=== PATIENT | female | born 1950 | race African-American/Black ===

== ENCOUNTER 2016-12-30 15:37 | Emergency (ER) | payer MEDICARE, OTHER ==
[~2016-12-30] VITALS: Ht 160 cm; Wt 100.0 kg
[~2016-12-30 15:37] MED LIST: ALBUAER3 INH; CETI10 PO; LISI40TA PO; NAPR-576 PO; NITR0.4S SL; OMEP20CA5 PO
[2016-12-30 15:39] VITALS: BP 135/76; PULSE 84; RESP 20; TEMP 98; O2SAT 98
--- NOTE | 2016-12-30 15:47 | PD ---
Physical Exam Date Seen by Provider: Dec 30, 2016 Time Seen by Provider: 15:46 Narrative 66 yo female here for chest pain. Going on for a week. Feels like its a pull. No falls or injuries. Saw PCP who sent here here. Pain is 6/10. No SOB. Vitals are stable in triage. Awaiting Bed placement. Data Data Last Documented VS Vital Signs Date Time Temp Pulse Resp B/P Pulse Ox O2 Delivery O2 Flow Rate FiO2 12/30/16 15:39 98.0 84 20 135/76 98 Room Air [facility] Medical Record Reviewed: Yes Supervised Visit with SHARLENE: No John Valente Dec 30, 2016 15:47
[2016-12-30] MEDS ORDERED: RESP: ALBUTEROL 2.5 MG/IPRATROPIUM 0.5 MG NEB (SCH) INH ONE (17:00)
[2016-12-30] MEDS ORDERED: methylPREDNISolone SOD SUCC 125 MG/2 ML VIAL IVP ONE (17:00)
[2016-12-30] MEDS ORDERED: SODIUM CHLORIDE 0.9% FLUSH 10 ML FLUSH IVF PRN (17:00)
[2016-12-30] MEDS ORDERED: OMEP40CA2 PO (17:01)
[2016-12-30 17:03] VITALS: RESP 16; O2SAT 98
--- NOTE | 2016-12-30 17:17 | PD ---
HPI Chief Complaint: Chest Pain Time Seen by Provider: 17:01 Travel History International Travel<30 days: No Contact w/Intl Traveler<30days: No Traveled to known affect area: No History of Present Illness HPI Patient comes in at the advice of her primary care doctor for further treatment and evaluation. Per patient's son says the patient is here to get an x-ray. Patient states she's been having substernal chest pulling ongoing for a week intermittently. Patient reports associated shortness of breath. Patient's use inhaler that is helped with her symptoms last used yesterday. Patient denies anything making it worse. Denies any fevers, dyspnea on exertion, edema, nausea , vomiting, back pain, headache, neck pain, abdominal pain, or loss change in bowel or bladder. Patient reports associated cough that is occasionally productive. PFSH Past Medical History Arthritis: Yes (BOTH KNEES) Asthma: No Autoimmune Disease: No Blood Disorders: No Bipolar Disorder: Yes Anxiety: Yes Depression: No Heart Rhythm Problems: No Cancer: No Cardiac Catheterization: No Cardiovascular Problems: Yes (PERICARDIAL WINDOW 2006) High Cholesterol: No Chemotherapy: No Chest Pain: Yes Congestive Heart Failure: No COPD: Yes Cerebrovascular Accident: No Diabetes: No Diminished Hearing: No Endocrine: No GERD: No Glaucoma: No Genitourinary: No Headaches: No Hepatitis: No Hiatal Hernia: No Hypertension: Yes Immune Disorder: No Kidney Stones: No Musculoskeletal: Yes Neurologic: No Psychiatric: Yes (BIPOLAR) Reproductive: No Respiratory: Yes Immunizations Current: No Migraines: No Myocardial Infarction: No Radiation Therapy: No Renal Failure: No Seizures: No Sickle Cell Disease: No Sleep Apnea: No Thyroid Disease: No Ulcer: No Menopausal: Yes Tubal Ligation: Yes Past Surgical History Abdominal Surgery: No AICD: No Appendectomy: No Arteriovenous Shunt: No Cardiac Surgery: Yes (PERICARDIAL WINDOW JAN 2007) Cholecystectomy: No Coronary Artery Bypass Graft: No Ear Surgery: No Endocrine Surgery: No Eye Surgery: No Genitourinary Surgery: No Gynecologic Surgery: Yes Insulin Pump: No Joint Replacement: No Oral Surgery: No Pacemaker: No Thoracic Surgery: No Other Surgery: Yes (CHEST SURGERY TO TAKE FLUID OFF) Social History Alcohol Use: No Tobacco Use: No Substance Use: No Allergies-Medications (Allergen,Severity, Reaction): Coded Allergies: No Known Allergies (Verified , 12/30/16) Reported Meds & Prescriptions Reported Meds & Active Scripts Active Medrol Dosepak (Methylprednisolone) 4 Mg Dspk 4 Mg PO DIRECTED Per Pharmacist direction Ventolin Hfa 18 GM Inh (Albuterol Sulfate) 90 Mcg/Act Aer 2 Puff INH Q4-6H PRN Use with MDI spacer. Lisinopril 40 Mg Tab 40 Mg PO DAILY Reported Omeprazole 40 Mg Cap 40 Mg PO DAILY Proair Hfa 8.5 GM Inh (Albuterol Sulfate) 90 Mcg/Act Aer 1 Puff INH Q6HR PRN 108 mcg/actuation Review of Systems Except as stated in HPI: all other systems reviewed are Neg Physical Exam Narrative GENERAL: Well-developed, overly nourished, in no acute distress, and non-ill appearing. SKIN: Focused skin assessment warm and dry. HEAD: Atraumatic. Normocephalic. EYES: Pupils equal and round. EOMI. No scleral icterus. No injection or drainage. ENT: No nasal bleeding or discharge. Mucous membranes pink and moist. NECK: Trachea midline. Supple. No nuclear rigidity. CARDIOVASCULAR: Regular rate and rhythm. No murmur appreciated. RESPIRATORY: No accessory muscle use. No respiratory distress. Decreased breath sounds throughout with scant wheezing noted. Breath sounds equal bilaterally. MUSCULOSKELETAL: No obvious deformities. No clubbing. No cyanosis. No edema. Full range of motion. NEUROLOGICAL: Awake and alert. No obvious cranial nerve deficits. Motor grossly within normal limits. Normal speech. PSYCHIATRIC: Appropriate mood and affect; insight and judgment normal. Data Data Last Documented VS Vital Signs Date Time Temp Pulse Resp B/P Pulse Ox O2 Delivery O2 Flow Rate FiO2 12/30/16 20:26 75 18 151/65 98 12/30/16 19:51 Room Air 12/30/16 18:16 97.8 Orders Electrocardiogram (12/30/16 ) Complete Blood Count With Diff (12/30/16 16:54) Basic Metabolic Panel (Bmp) (12/30/16 16:54) Magnesium (Mg) (12/30/16 16:54) Ckmb (Isoenzyme) Profile (12/30/16 16:54) Troponin I (12/30/16 16:54) Iv Access Insert/Monitor (12/30/16 16:54) Electrocardiogram (12/30/16 16:54) Ecg Monitoring (12/30/16 16:54) Oximetry (12/30/16 16:54) Chest, Single Ap (12/30/16 16:54) Sodium Chloride 0.9% Flush (Ns Flush) (12/30/16 17:00) Methylprednisolone So Succ Inj (Solumedr (12/30/16 17:00) Albuterol-Ipratropium Neb (Duoneb Neb) (12/30/16 17:00) Prothrombin Time / Inr (Pt) (12/30/16 17:42) Act Partial Throm Time (Ptt) (12/30/16 17:42) CKMB (12/30/16 17:00) CKMB% (12/30/16 17:00) Ct Thorax/ Chest Wo Iv Contras (12/30/16 ) Resp Mdi/Instruction (12/30/16 20:10) Labs Laboratory Tests Test 12/30/16 12/30/16 17:00 18:00 White Blood Count 8.0 TH/MM3 Red Blood Count 4.28 MIL/MM3 Hemoglobin 12.7 GM/DL Hematocrit 37.8 % Mean Corpuscular Volume 88.2 FL Mean Corpuscular Hemoglobin 29.6 PG Mean Corpuscular Hemoglobin 33.5 % Concent Red Cell Distribution Width 15.0 % Platelet Count 274 TH/MM3 Mean Platelet Volume 8.7 FL Neutrophils (%) (Auto) 52.2 % Lymphocytes (%) (Auto) 34.0 % Monocytes (%) (Auto) 7.5 % Eosinophils (%) (Auto) 5.2 % Basophils (%) (Auto) 1.1 % Neutrophils # (Auto) 4.2 TH/MM3 Lymphocytes # (Auto) 2.7 TH/MM3 Monocytes # (Auto) 0.6 TH/MM3 Eosinophils # (Auto) 0.4 TH/MM3 Basophils # (Auto) 0.1 TH/MM3 CBC Comment DIFF FINAL Differential Comment Sodium Level 140 MEQ/L Potassium Level 3.8 MEQ/L Chloride Level 107 MEQ/L Carbon Dioxide Level 26.2 MEQ/L Anion Gap 7 MEQ/L Blood Urea Nitrogen 12 MG/DL Creatinine 0.82 MG/DL Estimat Glomerular Filtration 84 ML/MIN Rate Random Glucose 76 MG/DL Calcium Level 8.6 MG/DL Magnesium Level 2.0 MG/DL Total Creatine Kinase 103 U/L Creatine Kinase MB 0.7 NG/ML Troponin I LESS THAN 0.02 NG/ML Prothrombin Time 11.0 SEC Prothromb Time International 1.0 RATIO Ratio Activated Partial 26.7 SEC Thromboplast Time MDM Medical Decision Making Medical Screen Exam Complete: Yes Emergency Medical Condition: Yes Interpretation(s) EKG reviewed by Dr. Sheffield shows normal sinus rhythm ventricular rate is 71. No STEMI. Chest x-ray read by the radiologist shows: Abnormal cardiac silhouette as above. CT chest suggested CT of the chest read by the radiologist shows: 1. Mild basal atelectasis. Cardiomegaly. 2. Trace pleural effusions bilaterally. Differential Diagnosis COPD exacerbation, pneumonia, acute coronary syndrome, pleural effusion, electrolyte abnormality, other Narrative Course 1755 patient reassessed resting comfortably in bed in no acute distress. Discussed patient abnormal x-ray findings and need for CT the chest. Patient verbalizes understanding. All questions were answered. Discussed all radiological and laboratory findings with patient and her son. Patient reports symptoms resolved after receiving duo nebs and Solu-Medrol treatment. Patient was offered admission chest pain center for further evaluation. Patient states she is wants to go home since her symptoms totally resolved after receiving breathing treatments. Patient in no obvious distress upon re-evaluation. All pertinent laboratory/ Radiology result(s) discussed with patient/family. Patient was asked if they wanted to speak to my attending, which the patient did not wish to do at this time. Discussed patient with Dr. Bennett prior discharge, who is in agreement with plan care and disposition. Any questions/concerns in reference to patient diagnosis/condition discussed and clarified prior to patient's discharge. Reinforced sheer importance of close follow up with patient's primary physician or primary care clinic. Instructed patient to return to ED immediately, if symptoms return/worsen. Pt showed understanding of above instructions. Further instructions and recommendations were detailed in discharge paperwork. Pt ambulated without difficulty out of ED at discharge. Diagnosis Primary Impression: COPD exacerbation Additional Impression: Cardiomegaly Patient Instructions: COPD (Chronic Obstructive Pulmonary Disease) (ED), General Instructions Additional Instructions: Follow-up with your primary care physician in 2-3 days for reevaluation. Take all medication as prescribed. Return to the emergency department if symptoms get worse. Med/Other Pt SpecificInfo: Prescription(s) given Scripts Methylprednisolone Dosepak (Medrol Dosepak)4 Mg Dspk4 Mg PO DIRECTED #1 DSPK Ref 0 Per Pharmacist direction Prov:Maria Luisa Bennett MD 12/30/16 Albuterol 18 GM Inh (Ventolin Hfa 18 GM Inh)90 Mcg/Act Aer2 Puff INH Q4-6H PRN ( SHORTNESS OF BREATH) #1 INHALER Ref 0 Use with MDI spacer. Prov:Maria Luisa Bennett MD 12/30/16 Disposition: 01 DISCHARGE HOME Condition: Stable Bebo Rothman Dec 30, 2016 17:17
--- NOTE | 2016-12-30 17:31 | RADRPT ---
EXAM DATE/TIME: 12/30/2016 16:57 [facility] COMPARISON: CHEST PA & LAT, August 20, 2014, 12:04. INDICATIONS : Shortness of breath. MEDICAL HISTORY : None. SURGICAL HISTORY : None. ENCOUNTER: Initial ACUITY: 1 day PAIN SCORE: 0/10 LOCATION: chest FINDINGS: There has been significant change in the appearance of the cardiac silhouette compared to previous ex am a bulbous configuration may reflect pericardial effusion. Unusual cardiomegaly or even mediastinal mass would be additional considerations. The pulmonary vascularity appears grossly normal. No effusi on is suspected. No definite focal parenchymal infiltrate is noted. CONCLUSION: Abnormal cardiac silhouette as above. CT chest suggested Rodney Hoover MD on December 30, 2016 at 17:20 Board Certified Radiologist. This report was verified electronically.
[2016-12-30 17:38] LABS: AUTOMATED NEUTROPHIL # 4.2 TH/MM3 (1.8-7.7); BASOPHIL # 0.1 TH/MM3 (0-0.2); BASOPHIL % 1.1 % (0.0-2.0); EOSINOPHIL # 0.4 TH/MM3 (0-0.4); EOSINOPHIL % 5.2 % (0.0-4.0); HEMATOCRIT 37.8 % (35.0-46.0); HEMO FLAGS DIFF FINAL; LYMPHOCYTE # 2.7 TH/MM3 (1.0-4.8); MEAN CELL VOLUME 88.2 FL (80.0-100.0); MEAN CORPUSCULAR HEMOGLOBIN 29.6 PG (27.0-34.0); MEAN CORPUSCULAR HGB CONC 33.5 % (32.0-36.0); MONO % 7.5 % (0.0-8.0); NEUT % 52.2 % (16.0-70.0); PLATELET COUNT 274 TH/MM3 (150-450); RED BLOOD COUNT 4.28 MIL/MM3 (4.00-5.30)
[2016-12-30 18:00] LABS: ANION GAP 7 MEQ/L (5-15); BICARBONATE 26.2 MEQ/L (21.0-32.0); BLOOD UREA NITROGEN 12 MG/DL (7-18); CHLORIDE 107 MEQ/L (98-107); GLOMERULAR FILTRATION RATE 84 ML/MIN (>89); POTASSIUM 3.8 MEQ/L (3.5-5.1); SODIUM (NA) 140 MEQ/L (136-145)
[2016-12-30 18:03] LABS: CREATINE KINASE 103 U/L (26-192)
[2016-12-30 18:16] VITALS: BP 141/72; PULSE 76; RESP 18; TEMP 97.8; O2SAT 97
[2016-12-30 18:16] LABS: CKMB 0.7 NG/ML (0.5-3.6)
[2016-12-30 18:52] LABS: APTT (PATIENT) 26.7 SEC (24.3-30.1)
[2016-12-30 19:51] VITALS: BP 154/71; PULSE 80; RESP 18; O2SAT 97
--- NOTE | 2016-12-30 20:02 | RADRPT ---
EXAM DATE/TIME: 12/30/2016 19:10 [facility] COMPARISON: No previous studies available for comparison. INDICATIONS : Chest pains for one week RADIATION DOSE: 6.20 CTDIvol (mGy) MEDICAL HISTORY : Cardiovascular disease. Hypertension. SURGICAL HISTORY : Tubal ligation. pericardial window ENCOUNTER: Initial ACUITY: 1 week PAIN SCALE: 0/10 LOCATION: chest TECHNIQUE: Volumetric scanning of the chest was performed. Using automated exposure control and adjustment of t he mA and/or kV according to patient size, radiation dose was kept as low as reasonably achievable to obtain optimal diagnostic quality images. DICOM format image data is available electronically for r eview and comparison. Follow-up recommendations for incidentally detected pulmonary nodules are based at a minimum on nodul e size and patient risk factors according to Fleischner Society Guidelines. FINDINGS: Heart size is enlarged. Minimal basal atelectasis in the lungs. Trace pleural fluid bilaterally. No p ericardial effusion. No acute bony abnormalities. CONCLUSION: 1. Mild basal atelectasis. Cardiomegaly. 2. Trace pleural effusions bilaterally. Mauro Ding MD on December 30, 2016 at 19:56 Board Certified Radiologist. This report was verified electronically.
[2016-12-30] MEDS ORDERED: VENTAER INH (20:13)
[2016-12-30] MEDS ORDERED: MEDR4PAK PO (20:13)
[2016-12-30 20:26] VITALS: BP 151/65
--- NOTE | 2016-12-31 11:53 | EKG ---
Date Performed: 12/30/2016 Time Performed: 17:09:37 PTAGE: 66 years EKG: Sinus rhythm NORMAL ECG PREVIOUS TRACING : 08/20/[address] abnormalities resolved compared to the prior dwight ng. DOCTOR: Liam Merino Interpretating Date/Time 12/31/2016 11:51:53
== END 2016-12-30 20:39 | disposition home or self-care (01) ==
LOC: NEPC 15:37
DX: J44.1 Chronic obstructive pulmonary disease with (acute) exacerbation (principal); I51.7 Cardiomegaly; I10 Essential (primary) hypertension
CPT/HCPCS: 71010; 71250; 80048; 82550; 82552; 83735; 84484; 85025; 85610; 85730; 93005; 94664; 96374; 99285; J2930

== ENCOUNTER 2017-02-10 20:02 | Observation (INO) | payer MEDICARE, OTHER ==
[~2017-02-10] VITALS: Ht 165.1 cm; Wt 90.0 kg
[~2017-02-10 20:02] MED LIST changes: -CETI10 PO; +MEDR4PAK PO; -NAPR-576 PO; -NITR0.4S SL; -OMEP20CA5 PO; +OMEP40CA2 PO; +VENTAER INH
[2017-02-10] MEDS ORDERED: SODIUM CHLORIDE 0.9% FLUSH 10 ML FLUSH IVF PRN (20:30)
[2017-02-10 20:47] VITALS: BP 200/84; PULSE 79; RESP 18; TEMP 98.6; O2SAT 97
[2017-02-10 20:56] LABS: AUTOMATED NEUTROPHIL # 6.8 TH/MM3 (1.8-7.7); BASOPHIL # 0.1 TH/MM3 (0-0.2); EOSINOPHIL # 0.3 TH/MM3 (0-0.4); EOSINOPHIL % 2.5 % (0.0-4.0); HEMATOCRIT 37.5 % (35.0-46.0); HEMO FLAGS DIFF FINAL; LYMPH % 24.4 % (9.0-44.0); LYMPHOCYTE # 2.6 TH/MM3 (1.0-4.8); MEAN CELL VOLUME 87.8 FL (80.0-100.0); MEAN CORPUSCULAR HEMOGLOBIN 29.1 PG (27.0-34.0); MEAN CORPUSCULAR HGB CONC 33.2 % (32.0-36.0); MONO % 8.3 % (0.0-8.0); NEUT % 63.8 % (16.0-70.0); PLATELET COUNT 326 TH/MM3 (150-450); RED BLOOD COUNT 4.27 MIL/MM3 (4.00-5.30); RED CELL DISTRIBUTION WIDTH 15.1 % (11.6-17.2); WHITE BLOOD COUNT 10.6 TH/MM3 (4.0-11.0)
[2017-02-10 21:11] LABS: APTT (PATIENT) 27.5 SEC (24.3-30.1); INTERNATIONAL NORMALIZED RATIO 0.9 RATIO; PROTHROMBIN TIME - PATIENT 10.4 SEC (9.8-11.6)
[2017-02-10 21:17] LABS: ANION GAP 8 MEQ/L (5-15); BICARBONATE 25.5 MEQ/L (21.0-32.0); BLOOD UREA NITROGEN 10 MG/DL (7-18); CHLORIDE 110 MEQ/L (98-107); GLOMERULAR FILTRATION RATE 91 ML/MIN (>89); MAGNESIUM 1.9 MG/DL (1.5-2.5); SODIUM (NA) 143 MEQ/L (136-145)
[2017-02-10 21:23] LABS: CREATINE KINASE 180 U/L (26-192)
--- NOTE | 2017-02-10 21:26 | PD ---
HPI Chief Complaint: Chest Pain Time Seen by Provider: 20:19 Travel History International Travel<30 days: No Contact w/Intl Traveler<30days: No Traveled to known affect area: No History of Present Illness HPI 66-year-old female that presents to the ED for evaluation of chest pain. She was seen by a Dr in [facility] and send here for evaluation of this. She states that she's been having chest pains on and off. Last and she had chest pain was today. Per patient she's also having sleep issues and she doesn't sleep well. She states that she snores a lot. Per patient's his history of pericarditis in the past and had to have fluid removed from her heart. She does have family history of heart disease. She is a history of hypertension. History of anxiety as well. No allergies to medication. She was sent here with prescription that states that the recommend a chest pain workup as well as evaluation for possible sleep study by PCP. Patient denies any symptoms at this time. She does have a known history of COPD and was seen here in December for the same. She is not really sure when she might have had a stress test. PFSH Past Medical History Arthritis: Yes (BOTH KNEES) Asthma: No Autoimmune Disease: No Blood Disorders: No Bipolar Disorder: Yes Anxiety: Yes Depression: No Heart Rhythm Problems: No Cancer: No Cardiac Catheterization: No Cardiovascular Problems: Yes (PERICARDIAL WINDOW 2006) High Cholesterol: No Chemotherapy: No Chest Pain: Yes Congestive Heart Failure: No COPD: Yes Cerebrovascular Accident: No Diabetes: No Diminished Hearing: No Endocrine: No GERD: No Glaucoma: No Genitourinary: No Headaches: No Hepatitis: No Hiatal Hernia: No Hypertension: Yes Immune Disorder: No Kidney Stones: No Musculoskeletal: Yes Neurologic: No Psychiatric: Yes (BIPOLAR) Reproductive: No Respiratory: Yes Immunizations Current: No Migraines: No Myocardial Infarction: No Radiation Therapy: No Renal Failure: No Seizures: No Sickle Cell Disease: No Sleep Apnea: No Thyroid Disease: No Ulcer: No Menopausal: Yes Tubal Ligation: Yes Past Surgical History Abdominal Surgery: No AICD: No Appendectomy: No Arteriovenous Shunt: No Cardiac Surgery: Yes (PERICARDIAL WINDOW JAN 2007) Cholecystectomy: No Coronary Artery Bypass Graft: No Ear Surgery: No Endocrine Surgery: No Eye Surgery: No Genitourinary Surgery: No Gynecologic Surgery: Yes Insulin Pump: No Joint Replacement: No Oral Surgery: No Pacemaker: No Thoracic Surgery: No Other Surgery: Yes (CHEST SURGERY TO TAKE FLUID OFF) Social History Alcohol Use: No (PT DENIES ) Tobacco Use: No (PT DENIES ) Substance Use: No (PT DENIES ) Allergies-Medications (Allergen,Severity, Reaction): Coded Allergies: No Known Allergies (Verified , 02/10/17) Reported Meds & Prescriptions Reported Meds & Active Scripts Active Medrol Dosepak (Methylprednisolone) 4 Mg Dspk 4 Mg PO DIRECTED Per Pharmacist direction Ventolin Hfa 18 GM Inh (Albuterol Sulfate) 90 Mcg/Act Aer 2 Puff INH Q4-6H PRN Use with MDI spacer. Lisinopril 40 Mg Tab 40 Mg PO DAILY Reported Omeprazole 40 Mg Cap 40 Mg PO DAILY Proair Hfa 8.5 GM Inh (Albuterol Sulfate) 90 Mcg/Act Aer 1 Puff INH Q6HR PRN 108 mcg/actuation Review of Systems Except as stated in HPI: all other systems reviewed are Neg Physical Exam Narrative GENERAL: SKIN: Warm and dry. HEAD: Atraumatic. Normocephalic. EYES: Pupils equal and round. No scleral icterus. No injection or drainage. ENT: No nasal bleeding or discharge. Mucous membranes pink and moist. Tongue is midline. No uvula deviation. NECK: Trachea midline. No JVD. CARDIOVASCULAR: Regular rate and rhythm. No murmurs, S3, S4. RESPIRATORY: No accessory muscle use. Clear to auscultation. Breath sounds equal bilaterally. GASTROINTESTINAL: Abdomen soft, non-tender, nondistended. Hepatic and splenic margins not palpable. MUSCULOSKELETAL: Extremities without clubbing, cyanosis, or edema. No obvious deformities. Full range of motion of the upper and lower extremities bilaterally. 2+ pulses bilaterally. NEUROLOGICAL: Awake and alert. No obvious cranial nerve deficits. Motor grossly within normal limits. Five out of 5 muscle strength in the arms and legs. Normal speech. PSYCHIATRIC: Appropriate mood and affect; insight and judgment normal. Data Data Last Documented VS Vital Signs Date Time Temp Pulse Resp B/P (MAP) Pulse Ox O2 Delivery O2 Flow Rate FiO2 02/10/17 21:41 98.6 88 18 175/87 (116) 02/10/17 20:47 97 Room Air Orders Orders Electrocardiogram (02/10/17 20:19) Basic Metabolic Panel (Bmp) (02/10/17 20:19) Ckmb (Isoenzyme) Profile (02/10/17 20:19) Complete Blood Count With Diff (02/10/17 20:19) Magnesium (Mg) (02/10/17 20:19) Prothrombin Time / Inr (Pt) (02/10/17 20:19) Act Partial Throm Time (Ptt) (02/10/17 20:19) Troponin I (02/10/17 20:19) Lipase (02/10/17 20:19) Chest, Single Ap (02/10/17 20:19) Ecg Monitoring (02/10/17 20:19) Bilateral Bp Monitoring (02/10/17 20:19) Iv Access Insert/Monitor (02/10/17 20:19) Oximetry (02/10/17 20:) Oxygen Administration (02/10/17 20:19) Sodium Chloride 0.9% Flush (Ns Flush) (02/10/17 20:30) CKMB (02/10/17 20:35) CKMB% (02/10/17 20:35) Admit Order (Ed Use Only) (02/10/17 22:20) Labs Laboratory Tests Test 02/10/17 20:35 White Blood Count 10.6 TH/MM3 Red Blood Count 4.27 MIL/MM3 Hemoglobin 12.4 GM/DL Hematocrit 37.5 % Mean Corpuscular Volume 87.8 FL Mean Corpuscular Hemoglobin 29.1 PG Mean Corpuscular Hemoglobin Concent 33.2 % Red Cell Distribution Width 15.1 % Platelet Count 326 TH/MM3 Mean Platelet Volume 8.6 FL Neutrophils (%) (Auto) 63.8 % Lymphocytes (%) (Auto) 24.4 % Monocytes (%) (Auto) 8.3 % Eosinophils (%) (Auto) 2.5 % Basophils (%) (Auto) 1.0 % Neutrophils # (Auto) 6.8 TH/MM3 Lymphocytes # (Auto) 2.6 TH/MM3 Monocytes # (Auto) 0.9 TH/MM3 Eosinophils # (Auto) 0.3 TH/MM3 Basophils # (Auto) 0.1 TH/MM3 CBC Comment DIFF FINAL Differential Comment Prothrombin Time 10.4 SEC Prothromb Time International Ratio 0.9 RATIO Activated Partial Thromboplast Time 27.5 SEC Blood Urea Nitrogen 10 MG/DL Creatinine 0.77 MG/DL Random Glucose 94 MG/DL Calcium Level 9.1 MG/DL Magnesium Level 1.9 MG/DL Sodium Level 143 MEQ/L Potassium Level 4.0 MEQ/L Chloride Level 110 MEQ/L Carbon Dioxide Level 25.5 MEQ/L Anion Gap 8 MEQ/L Estimat Glomerular Filtration Rate 91 ML/MIN Total Creatine Kinase 180 U/L Creatine Kinase MB 1.7 NG/ML Troponin I LESS THAN 0.02 NG/ML Lipase 131 U/L [facility] Medical Decision Making Medical Screen Exam Complete: Yes Emergency Medical Condition: Yes Medical Record Reviewed: Yes Interpretation(s) EKG shows sinus rhythm with no sign of acute ischemia recommended by me and attending. CBC & BMP Diagram 02/10/17 20:35 Calcium Level 9.1, Magnesium Level 1.9 troponin negative CKMB negative Last Impressions Chest X-Ray 02/10/172018 Signed Impressions: Service Date/Time: Wednesday, February 10, 2017 20:45 - CONCLUSION: 1. Cardiomegaly. 2. Bibasilar densities consistent with atelectasis and/or developing infiltrates. Clinical correlation is recommended. 3. Degenerative changes throughout the thoracic spine. Vishnu Gagnon MD Differential Diagnosis Chest pain versus ACS versus a typical chest pain versus anxiety Narrative Course 66-year-old female that presents to the ED for evaluation of chest pain. Patient was properly examined and was found to have signs and symptoms of unclear etiology. Patient at this time is chest pain-free. Patient has had chest pain on and off for months. She can return if she sees a slate picker. Overall patient is somewhat of a poor historian. She does have unfortunately risk factors for heart disease including age, hypertension, old history of smoking. Labs and imaging were done. Labs and imaging showed no sign of acute disease. Chest x-ray showed what appears to be atelectasis. I do not believe this is an infiltrate. Patient doesn't have an elevated white blood cell count at this time or any signs and symptoms of pneumonia. Patient and family did agree for chest pain center admission. Patient was admitted to the chest pain center. Diagnosis Primary Impression: Chest pain Qualified Codes: R07.9 - Chest pain, unspecified Admitting Information Admitting Physician Requests: John Zuniga Feb 10, 2017 21:26
--- NOTE | 2017-02-10 21:30 | RADRPT ---
EXAM DATE/TIME: 02/10/2017 20:45 [facility] COMPARISON: CHEST SINGLE AP, December 30, 2016, 16:57. INDICATIONS : Chest pain. MEDICAL HISTORY : Cardiovascular disease. Hypertension SURGICAL HISTORY : None. ENCOUNTER: Initial ACUITY: 1 day PAIN SCORE: 110 LOCATION: Bilateral chest FINDINGS: The heart is enlarged. Bibasilar densities are noted consistent with atelectasis and/o r mild infiltrates. Clinical correlation is recommended. Degenerative changes are noted throughout th e thoracic spine. CONCLUSION: 1. Cardiomegaly. 2. Bibasilar densities consistent with atelectasis and/or developing infiltrates. Clinical correlati on is recommended. 3. Degenerative changes throughout the thoracic spine. Vishnu Gagnon MD on February 10, 2017 at 21:09 Board Certified Radiologist. This report was verified electronically.
[2017-02-10 21:35] LABS: CKMB 1.7 NG/ML (0.5-3.6)
[2017-02-10 21:41] VITALS: BP 175/87; PULSE 88; RESP 18; TEMP 98.6
[2017-02-10] MEDS ORDERED: SODIUM CHLORIDE 0.9% FLUSH 10 ML FLUSH IV FLUSH PRN (22:30)
--- NOTE | 2017-02-10 23:23 | EKG ---
Date Performed: 02/10/2017 Time Performed: 20:23:58 PTAGE: 66 years EKG: Sinus rhythm POSSIBLE LEFT ATRIAL ENLARGEMENT BORDERLINE ECG Compared to the PREVIOUS TRACING from 12/30/16, LAE changes are now noted DOCTOR: Kel Sheffield Interpretating Date/Time 02/10/2017 23:21:40
[2017-02-10] MEDS ORDERED: diphenhydrAMINE HCL 25 MG CAP PO ONE (23:30)
[2017-02-11 00:12] LABS: CREATINE KINASE 214 U/L (26-192)
[2017-02-11 03:04] LABS: CREATINE KINASE 184 U/L (26-192)
[2017-02-11 03:17] LABS: CKMB 2.7 NG/ML (0.5-3.6)
[2017-02-11 03:25] VITALS: BP 162/74; PULSE 73; RESP 18; TEMP 98.2; O2SAT 100
[2017-02-11 06:49] VITALS: PULSE 67
[2017-02-11 07:47] VITALS: BP 156/70; PULSE 78; RESP 16; TEMP 98.1; O2SAT 98
[2017-02-11] MEDS ORDERED: SODIUM CHLORIDE 0.9% FLUSH 10 ML FLUSH IV FLUSH SCH (09:00)
[2017-02-11] MEDS ORDERED: RESP: ALBUTEROL 2.5 MG/IPRATROPIUM 0.5 MG NEB (PRN) INH (10:30)
--- NOTE | 2017-02-11 10:32 | EKG ---
Date Performed: 02/11/2017 Time Performed: 02:37:55 PTAGE: 66 years EKG: Sinus rhythm NORMAL ECG PREVIOUS TRACING : 02/10/2017 20.23 DOCTOR: Geoff Sierra Interpretating Date/Time 02/11/2017 10:32:11
--- NOTE | 2017-02-11 10:33 | EKG ---
Date Performed: 02/10/2017 Time Performed: 23:36:57 PTAGE: 66 years EKG: Sinus rhythm POSSIBLE LEFT ATRIAL ENLARGEMENT BORDERLINE ECG NO CHANGE NO PREVIOUS TRACING DOCTOR: Geoff Sierra Interpretating Date/Time 02/11/2017 10:32:46
--- NOTE | 2017-02-11 11:11 | MH ---
cc: ADRIÁN OROZCO MD DATE OF ADMISSION: 02/10/2017 CHIEF COMPLAINT Chest hurting (the patient points to the epigastric area). PRESENT HISTORY A 66-year-old black female who is an extremely poor historian. In addition, it is very difficult to understand her speech. She was brought to the emergency room by ambulance after complaining to her son that she had chest pain. After a protracted discussion, the patient indicates to me that she has been having epigastric/low chest pain for a long time. The character she describes is like a wire scratching. The location is predominantly in upper epigastrium in the area where she had previous pericardial surgery to develop a wound for a pericardial effusion. She tells me that the discomfort is 1-2/10, however, 30 minutes or so later when her son came into the room and we were discussing this, he stated here that she would not have come to the hospital if it was only 1-2 and with his encouragement she redefines the pain as 7/10. There is no radiation. The duration is a little while and she is unable to determine whether this is a few seconds, a few minutes or a few hours. She has no other associated symptoms. There are no precipitating factor but she does note that the pain seems to be worse when she takes a big breath and there are no relieving factors. PAST MEDICAL HISTORY 1. She has arthritis in her knees and somewhat in her hands. 2. She has a history of anxiety. 3. She has some pericardial window carried out in 2006 with 700 milliliters of fluid being drained. 4. She may have a history of COPD, although this seems to be less clear. 5. She has a history of hypertension. 6. Psychiatric history, diagnosed bipolar disease. PAST SURGICAL HISTORY 1. Tubal ligation. 2. Pericardial window in January of 2007. SOCIAL HISTORY She has never used tobacco and uses no alcohol. She also denies any substance abuse. FAMILY HISTORY She is not clear on her family history but believes her father from some kind of lung problem, unknown age. Her mother of some kind of heart trouble, unknown age. However, she does point out that had reportedly 20 children. She tells me that she has 14 siblings, then that she has five sisters and eight brothers. MEDICATIONS Also less than clear. On addition, she reported as being on - 1. Medrol Dosepak. 2. Ventolin. 3. Lisinopril 40. However, the son brings in three bottles that she supposedly is taking, this is - 1. Lisinopril 40 once a day. 2. Benztropine 1 mg once a day. 3. Trazodone 100, 2 at sleep. ALLERGIES She has no known allergies. REVIEW OF SYSTEMS Other than that already covered, is negative other than complaints of recurring headaches. PHYSICAL EXAMINATION GENERAL: An obese, disheveled lady who appears to be resting fairly comfortably on her side in bed. SKIN: Her skin shows extensive dark-colored actinic changes, was otherwise unremarkable. HEAD: Normocephalic, atraumatic. Hair is thinning, tightly braided. HEENT: Hearing appears to be good. Eyes: The conjunctivae are somewhat muddy. Her pupils are equal and respond to light. Extraocular movements are intact. Nose: Unremarkable. Mouth: Mucous membranes moist. The tongue demonstrates an involuntary motion with lip smacking. She is edentulous with no lesions. NECK: Supple. No JVD, masses, nodes or bruits. CHEST: Difficult to auscultate but appears to relatively clear although the basis are somewhat dull. CARDIAC: A well healed surgical scar. The PMI is not palpable due to her obesity. First and second heart sounds are clearly audible. There are no gallops, rubs or murmurs noted. ABDOMEN: Obese, nontender. No guarding or rebound. Her spleen cannot be palpated. EXTREMITIES: Some trace edema bilaterally. Knees show some changes that are suggestive of arthritis. NEUROLOGIC: Her memory seems to be very impaired. She does seem to know where she is and she does recognize her children. With some help she can provide very limited history. Cranial nerves appear to be grossly intact. Motor strength in upper extremities is fairly well preserved. Lowers were not tested. LABORATORY CBC is essentially unremarkable, within normal limits aside from slightly elevated monocytes. Chem profile likewise is unremarkable aside from the slightly elevated chloride. Her second CK was mildly elevated at 214; however, her troponins are negative x 3. Her chest x-ray shows cardiomegaly, some blurring of the left base. Official Reading - Cardiomegaly, bibasilar densities consistent with atelectasis and/or infiltrates and degenerative changes in the thoracic spine. EKG x3 show no acute changes. ASSESSMENT 1. Atypical chest pain, probably scarring from previous pericardial window. 2. Obesity. 3. Bipolar disease. 4. Impaired memory. 5. Hypertension. 6. Possible COPD by history. PLAN The patient is ruled out x 3 with enzymes and EKG. The pain description is almost certainly related to her prior pericardial window. However, because of family's concern, further evaluation with a nuclear stress test will be carried out to be reasonably certain this is not ischemic heart disease. MD MELISSA Cárdenas/SSB /10:17 AM /10:37 AM
[2017-02-11 11:25] VITALS: BP 144/84; PULSE 92; RESP 18; TEMP 98; O2SAT 96
[2017-02-11] MEDS ORDERED: REGADENOSON INJ 0.4 MG/5 ML SYR ONE (13:01)
--- NOTE | 2017-02-11 14:42 | RADRPT ---
EXAM DATE/TIME: 02/11/2017 12:37 [facility] COMPARISON: No previous studies available for comparison. INDICATIONS : Chest pain for 1 day. Angina. DOSE: 34.9 mCi Tc99m Myoview at stress. 11.0 mCi Tc99m Myoview at rest. 0.4 mg Lexiscan STRESS SYMPTOMS: Shortness of breath. EJECTION FRACTION: > 70% MEDICAL HISTORY : Hypertension. Chronic obstructive pulmonary disease. Cardiomegaly. SURGICAL HISTORY : Pericardial window. ENCOUNTER: Initial ACUITY: 1 day PAIN SCALE: 3/10 LOCATION: Bilateral chest TECHNIQUE: The patient underwent pharmacologic stress with infusion of prescribed dose. Continuous ECG tracing was monitored during stress. Gated SPECT imaging was performed after stress and conventional SPECT i maging was performed at rest. The examination was performed on a SPECT/CT scanner, both attenuation and non-corrected datasets were reviewed. FINDINGS: DISTRIBUTION: The maximum perfused segment at stress is in the anterior wall. PERFUSION STUDY: The pattern of perfusion at stress is within normal limits. GATED STUDY: There is intact wall motion and thickening without hypokinetic or dyskinetic segments. CONCLUSION: 1. No significant reversibility to suggest ischemia. 2. Normal wall motion and ejection fraction greater than 70% RISK CATEGORY: Low (<1% Annual Mortality Rate) Mauro Ding MD on February 11, 2017 at 14:39 Board Certified Radiologist. This report was verified electronically.
--- NOTE | 2017-02-11 14:55 | HHI.DCPOC ---
Discharge Care Plan Diagnosis: (1) Chest pain Goals to Promote Your Health * To prevent worsening of your condition and complications * To maintain your health at the optimal level Directions to Meet Your Goals Take your medications as prescribed Follow your dietary instruction Follow activity as directed Keep your appointments as scheduled Take your immunizations and boosters as scheduled If your symptoms worsen call your PCP, if no PCP go to Urgent Care Center or Emergency Room Smoking is Dangerous to Your Health. Avoid second hand smoke Call the 24-hour hour crisis hotline for domestic abuse at Jose De Jesus Randhawa Feb 11, 2017 14:55
--- NOTE | 2017-02-12 14:27 | TR ---
Date Performed: 02/11/2017 Time Performed: 13:21:20 DOCTOR: Rudolph Doyle DRUG LIST: CLINICAL HISTORY: ANGINA REASON FOR TEST: Angina REASON FOR ENDING: OBSERVATION: CONCLUSION: Lexiscan stress test was performed under standard four minute protocol. Radionuclid e was injected one minute prior to ending the test. No electrocardiographic abormalities were present to suggest ischemia. Nuclear imaging and interpretation are pending. COMMENTS:
== END 2017-02-11 17:22 | disposition home or self-care (01) ==
LOC: NEPC 20:02 → NEDA 22:22 → NEPFCDU 02-11 00:39
PROVIDERS: ADMIT Internal Medicine Cardiovascular Disease; ATTEND Internal Medicine Cardiovascular Disease
DX: R07.89 Other chest pain (principal); I10 Essential (primary) hypertension; J44.9 Chronic obstructive pulmonary disease, unspecified; F31.9 Bipolar disorder, unspecified; M17.0 Bilateral primary osteoarthritis of knee; M19.042 Primary osteoarthritis, left hand; M19.041 Primary osteoarthritis, right hand; E66.9 Obesity, unspecified; Z68.33 Body mass index [BMI] 33.0-33.9, adult; R94.31 Abnormal electrocardiogram [ECG] [EKG]; Z87.891 Personal history of nicotine dependence; Z82.49 Family history of ischemic heart disease and other diseases of the circulatory system
CPT/HCPCS: 71010; 78452; 80048; 82550; 82552; 83690; 83735; 84484; 85025; 85610; 85730; 93005; 93017; 99285; A9502; G0378; J2785

== ENCOUNTER 2017-07-27 10:06 | Emergency (ER) | payer MEDICARE, OTHER ==
[~2017-07-27] VITALS: Ht 162.6 cm; Wt 105.0 kg
[~2017-07-27 10:06] MED LIST changes: -MEDR4PAK PO
[2017-07-27 10:27] VITALS: BP 156/77; PULSE 88; RESP 18; TEMP 99.6; O2SAT 97
[2017-07-27 13:14] LABS: BASOPHIL # 0.1 TH/MM3 (0-0.2); BASOPHIL % 0.7 % (0.0-2.0); EOSINOPHIL # 0.4 TH/MM3 (0-0.4); EOSINOPHIL % 4.7 % (0.0-4.0); HEMATOCRIT 41.8 % (35.0-46.0); HEMOGLOBIN 14.1 GM/DL (11.6-15.3); LYMPHOCYTE # 2.7 TH/MM3 (1.0-4.8); MEAN CELL VOLUME 88.6 FL (80.0-100.0); MEAN CORPUSCULAR HEMOGLOBIN 29.9 PG (27.0-34.0); MEAN CORPUSCULAR HGB CONC 33.8 % (32.0-36.0); MEAN PLATELET VOLUME 8.9 FL (7.0-11.0); MONOCYTE # 0.6 TH/MM3 (0-0.9); NEUT % 51.6 % (16.0-70.0); PLATELET COUNT 334 TH/MM3 (150-450); RED BLOOD COUNT 4.72 MIL/MM3 (4.00-5.30); WHITE BLOOD COUNT 7.8 TH/MM3 (4.0-11.0)
[2017-07-27 13:26] VITALS: BP 168/69; PULSE 71; RESP 17; O2SAT 96
[2017-07-27 13:30] LABS: ALBUMIN 3.6 GM/DL (3.4-5.0); ALT (GPT) 31 U/L (10-53); AST (GOT) 18 U/L (15-37); BICARBONATE 28.9 MEQ/L (21.0-32.0); BLOOD UREA NITROGEN 9 MG/DL (7-18); CALCIUM 8.8 MG/DL (8.5-10.1); CHLORIDE 108 MEQ/L (98-107); CREATININE 0.85 MG/DL (0.50-1.00); GLOMERULAR FILTRATION RATE 81 ML/MIN (>89); GLUCOSE,RANDOM 83 MG/DL (74-106); SODIUM (NA) 141 MEQ/L (136-145)
[2017-07-27] MEDS ORDERED: LISINOPRIL 20 MG TAB PO SCH (13:30)
[2017-07-27 13:31] LABS: ALKALINE PHOSPHATASE 109 U/L (45-117); TOTAL BILIRUBIN ADULT 0.3 MG/DL (0.2-1.0)
[2017-07-27] MEDS ORDERED: LISI40TA PO (13:32)
--- NOTE | 2017-07-27 13:32 | PD ---
HPI Chief Complaint: Dizziness Time Seen by Provider: 13:12 Travel History International Travel<30 days: No Contact w/Intl Traveler<30days: No Traveled to known affect area: No History of Present Illness HPI 67-year-old female presents to the emergency department accompanied by her son with complaint of feeling dizzy since yesterday. She states "I think my blood pressure is high." She has history of hypertension and takes lisinopril 40 mg daily which she has not taken in 3 weeks because she does not currently have a primary care provider and ran out of her medications. She denies chest pain, shortness of breath, change in vision, fever, vomiting, feeling faint. Reports "a little bit of a headache." Says the dizziness is worse when she stands up. It is absent when she is at rest. She has not taken any medications or tried any treatments to alleviate her symptoms. History of hypertension and COPD. No primary care provider. No known allergies. Has no other medical complaints. No other modifying factors or associated signs and symptoms. PFSH Past Medical History Arthritis: Yes (BOTH KNEES) Asthma: No Autoimmune Disease: No Blood Disorders: No Bipolar Disorder: Yes Anxiety: Yes Depression: No Heart Rhythm Problems: No Cancer: No Cardiac Catheterization: No Cardiovascular Problems: Yes (PERICARDIAL WINDOW 2006) High Cholesterol: No Chemotherapy: No Chest Pain: Yes Congestive Heart Failure: No COPD: Yes Cerebrovascular Accident: No Diabetes: No Diminished Hearing: No Endocrine: No GERD: No Glaucoma: No Genitourinary: No Headaches: No Hepatitis: No Hiatal Hernia: No Hypertension: Yes Immune Disorder: No Kidney Stones: No Musculoskeletal: Yes Neurologic: No Psychiatric: Yes (BIPOLAR) Reproductive: No Respiratory: Yes Immunizations Current: No Migraines: No Myocardial Infarction: No Radiation Therapy: No Renal Failure: No Seizures: No Sickle Cell Disease: No Sleep Apnea: No Thyroid Disease: No Ulcer: No ?: Not Menopausal: Yes Tubal Ligation: Yes Past Surgical History Abdominal Surgery: No AICD: No Appendectomy: No Arteriovenous Shunt: No Cardiac Surgery: Yes (PERICARDIAL WINDOW JAN 2007) Cholecystectomy: No Coronary Artery Bypass Graft: No Ear Surgery: No Endocrine Surgery: No Eye Surgery: No Genitourinary Surgery: No Gynecologic Surgery: Yes Insulin Pump: No Joint Replacement: No Oral Surgery: No Pacemaker: No Thoracic Surgery: No Other Surgery: Yes (CHEST SURGERY TO TAKE FLUID OFF) Family History Family Myocardial Infarction: Yes (mother) Social History Alcohol Use: No (PT DENIES ) Tobacco Use: No (PT DENIES ) Substance Use: No (PT DENIES ) Allergies-Medications (Allergen,Severity, Reaction): Coded Allergies: No Known Allergies (Verified Adverse Reaction, Unknown, 07/27/17) Reported Meds & Prescriptions Reported Meds & Active Scripts Active Lisinopril 40 Mg Tab 40 Mg PO DAILY Ventolin Hfa 18 GM Inh (Albuterol Sulfate) 90 Mcg/Act Aer 2 Puff INH Q4-6H PRN Use with MDI spacer. Lisinopril 40 Mg Tab 40 Mg PO DAILY Reported Omeprazole 40 Mg Cap 40 Mg PO DAILY Proair Hfa 8.5 GM Inh (Albuterol Sulfate) 90 Mcg/Act Aer 1 Puff INH Q6HR PRN 108 mcg/actuation Review of Systems Except as stated in HPI: all other systems reviewed are Neg Physical Exam Narrative GENERAL: Well-nourished, well-developed elderly, black female patient, in no acute distress SKIN: Warm and dry. HEAD: Atraumatic. Normocephalic. EYES: Pupils equal and round. No scleral icterus. No injection or drainage. ENT: Mucosa pink and moist. Airway patent. NECK: Trachea midline. CARDIOVASCULAR: Regular rate and rhythm. No murmur appreciated. RESPIRATORY: No accessory muscle use. Breath sounds clear and equal bilaterally. No retractions or tachypnea. GASTROINTESTINAL: Abdomen soft, non-tender, nondistended. Bowel sounds active 4 quadrants. Nonrigid. No guarding. MUSCULOSKELETAL: No obvious deformities. No clubbing. No cyanosis. No edema. NEUROLOGICAL: Awake and alert. Oriented 3. No obvious cranial nerve deficits. Motor grossly within normal limits. Normal speech. PSYCHIATRIC: Appropriate mood and affect; insight and judgment normal. Data Data Last Documented VS Vital Signs Date Time Temp Pulse Resp B/P (MAP) Pulse Ox O2 Delivery O2 Flow Rate FiO2 07/27/17 13:26 71 17 168/69 (102) 96 Room Air 07/27/17 10:27 99.6 Orders Orders Electrocardiogram (07/27/17 ) Complete Blood Count With Diff (07/27/17 11:00) Comprehensive Metabolic Panel (07/27/17 11:00) Lisinopril (Prinivil) (07/27/17 13:30) Labs Laboratory Tests Test 3/6/18 12:49 White Blood Count 7.8 TH/MM3 Red Blood Count 4.72 MIL/MM3 Hemoglobin 14.1 GM/DL Hematocrit 41.8 % Mean Corpuscular Volume 88.6 FL Mean Corpuscular Hemoglobin 29.9 PG Mean Corpuscular Hemoglobin Concent 33.8 % Red Cell Distribution Width 15.0 % Platelet Count 334 TH/MM3 Mean Platelet Volume 8.9 FL Neutrophils (%) (Auto) 51.6 % Lymphocytes (%) (Auto) 35.0 % Monocytes (%) (Auto) 8.0 % Eosinophils (%) (Auto) 4.7 % Basophils (%) (Auto) 0.7 % Neutrophils # (Auto) 4.0 TH/MM3 Lymphocytes # (Auto) 2.7 TH/MM3 Monocytes # (Auto) 0.6 TH/MM3 Eosinophils # (Auto) 0.4 TH/MM3 Basophils # (Auto) 0.1 TH/MM3 CBC Comment DIFF FINAL Differential Comment Blood Urea Nitrogen 9 MG/DL Creatinine 0.85 MG/DL Random Glucose 83 MG/DL Total Protein 8.0 GM/DL Albumin 3.6 GM/DL Calcium Level 8.8 MG/DL Alkaline Phosphatase 109 U/L Aspartate Amino Transf (AST/SGOT) 18 U/L Alanine Aminotransferase (ALT/SGPT) 31 U/L Total Bilirubin 0.3 MG/DL Sodium Level 141 MEQ/L Potassium Level 3.8 MEQ/L Chloride Level 108 MEQ/L Carbon Dioxide Level 28.9 MEQ/L Anion Gap 4 MEQ/L Estimat Glomerular Filtration Rate 81 ML/MIN MDM Medical Decision Making Medical Screen Exam Complete: Yes Emergency Medical Condition: Yes Medical Record Reviewed: Yes Differential Diagnosis High blood pressure, dizziness, medical clearance, medication refill Narrative Course 67-year-old female complaining of dizziness. She has history of hypertension and has not taken her medication for 3 weeks. She takes lisinopril 40 mg daily. She is asymptomatic otherwise. She has no dizziness while at rest. Blood pressure reading in the emergency department is 156/77. Discussed the patient with Dr. Hopkins, attending physician, and she agrees with my plan of care. CBC, CMP, EKG ordered in triage. EKG with normal sinus rhythm without ST elevation or depression; reviewed by Dr. Hopkins. 1330: CBC unremarkable. 1400: CMP unremarkable. Lisinopril prescribed for home. Patient provided information for [facility] for outpatient follow-up. Dr. Hopkins agrees with discharge. Instructed patient to follow up with primary care provider. Patient verbalizes understanding and agreement with treatment plan. Patient is medically cleared and stable for discharge. Discussed reasons to return to the emergency department. Patient agrees with treatment plan. The patients vital signs are stable and the patient is stable for outpatient follow- up and treatment. Patient discharged home, stable and in no acute distress. Diagnosis Primary Impression: Dizziness Additional Impression: High blood pressure Qualified Codes: I10 - Essential (primary) hypertension Referrals: [facility] Primary Care Physician Patient Instructions: Dizziness (ED), General Instructions, Hypertension (ED) Additional Instructions: Take blood pressure medications as prescribed [id number] meclizine as directed and as needed for continued dizziness Follow-up with your primary care provider Return to the emergency department immediately with worsening of symptoms Med/Other Pt SpecificInfo: Prescription(s) given Scripts Lisinopril (Lisinopril) 40 Mg Tab 40 MG PO DAILY for Blood Pressure Management, #30 TAB 0 Refills Prov: Herminia Slater 07/27/17 Disposition: 01 DISCHARGE HOME Condition: Stable Herminia Slater Jul 27, 2017 13:32
--- NOTE | 2017-07-28 14:59 | EKG ---
Date Performed: 07/27/2017 Time Performed: 10:50:21 PTAGE: 67 years EKG: Sinus rhythm NONSPECIFIC ST & T-WAVE ABNORMALITY BORDERLINE ECG PREVIOUS TRACING : 02/11/2017 02.37 DOCTOR: Luis Monroe Interpretating Date/Time 07/28/2017 14:58:24
== END 2017-07-27 14:34 | disposition home or self-care (01) ==
LOC: NEPD 10:06
DX: R42 Dizziness and giddiness (principal); I10 Essential (primary) hypertension
CPT/HCPCS: 80053; 85025; 93005; 99284

== ENCOUNTER 2017-08-06 15:55 | Observation (INO) | payer OTHER ==
[~2017-08-06] VITALS: Ht 154.9 cm; Wt 110.0 kg
[2017-08-06 16:40] VITALS: BP 155/101; PULSE 82; RESP 16; TEMP 99; O2SAT 82
[2017-08-06 19:44] LABS: AUTOMATED NEUTROPHIL # 5.9 TH/MM3 (1.8-7.7); BASOPHIL # 0.1 TH/MM3 (0-0.2); EOSINOPHIL # 0.3 TH/MM3 (0-0.4); EOSINOPHIL % 3.6 % (0.0-4.0); HEMATOCRIT 40.5 % (35.0-46.0); HEMOGLOBIN 13.6 GM/DL (11.6-15.3); LYMPH % 22.9 % (9.0-44.0); MEAN CELL VOLUME 88.7 FL (80.0-100.0); MEAN CORPUSCULAR HEMOGLOBIN 29.7 PG (27.0-34.0); MEAN CORPUSCULAR HGB CONC 33.5 % (32.0-36.0); MONO % 4.8 % (0.0-8.0); MONOCYTE # 0.4 TH/MM3 (0-0.9); NEUT % 67.7 % (16.0-70.0); PLATELET COUNT 324 TH/MM3 (150-450); RED BLOOD COUNT 4.57 MIL/MM3 (4.00-5.30); RED CELL DISTRIBUTION WIDTH 15.1 % (11.6-17.2); WHITE BLOOD COUNT 8.8 TH/MM3 (4.0-11.0)
[2017-08-06 20:10] LABS: BICARBONATE 24.2 MEQ/L (21.0-32.0); BLOOD UREA NITROGEN 10 MG/DL (7-18); CALCIUM 9.3 MG/DL (8.5-10.1); CHLORIDE 110 MEQ/L (98-107); CREATININE 0.77 MG/DL (0.50-1.00); GLOMERULAR FILTRATION RATE 90 ML/MIN (>89); GLUCOSE,RANDOM 93 MG/DL (74-106); SODIUM (NA) 141 MEQ/L (136-145)
[2017-08-06 20:15] LABS: TROPONIN I LESS THAN 0.02 NG/ML (0.02-0.05)
[2017-08-06 21:40] VITALS: PULSE 81; RESP 16; O2SAT 98
--- NOTE | 2017-08-06 22:00 | RADRPT ---
EXAM DATE/TIME: 08/06/2017 21:51 [facility] COMPARISON: No previous studies available for comparison. INDICATIONS : Slurred speech, right side weakness and headache. RADIATION DOSE: 34.94 CTDIvol (mGy) MEDICAL HISTORY : Hypertension. Cardiovascular disease SURGICAL HISTORY : None. ENCOUNTER: Initial ACUITY: 1 day PAIN SCALE: 4/10 LOCATION: cranial TECHNIQUE: Multiple contiguous axial images were obtained of the head. Using automated exposure control and adj ustment of the mA and/or kV according to patient size, radiation dose was kept as low as reasonably a chievable to obtain optimal diagnostic quality images. DICOM format image data is available electro nically for review and comparison. FINDINGS: CEREBRUM: The ventricles are normal for age. No evidence of midline shift, mass lesion, hemorrhage or acute in farction. No extra-axial fluid collections are seen. Mild, chronic low attenuation seen in the periv entricular white matter. POSTERIOR FOSSA: The cerebellum and brainstem are intact. The 4th ventricle is midline. The cerebellopontine angle i s unremarkable. EXTRACRANIAL: Mucoperiosteal thickening of the visualized ethmoid air cells. SKULL: The calvaria is intact. No evidence of skull fracture. CONCLUSION: No bleed or evidence of an acute ischemic event. Mild chronic white matter changes. Ethmoid sinus dis ease noted. Rodney Dean MD on August 06, 2017 at 21:57 Board Certified Radiologist. This report was verified electronically.
[2017-08-06 22:02] VITALS: BP_SYST 157; BP_SYST 181; BP_DIAS 72; PULSE 72; RESP 16; O2SAT 97
--- NOTE | 2017-08-06 23:21 | PD ---
HPI Chief Complaint: Neuro Symptoms/ Deficits Time Seen by Provider: 21:13 Travel History International Travel<30 days: No Contact w/Intl Traveler<30days: No Traveled to known affect area: No History of Present Illness HPI Patient is a 67 year old female who comes in due to slurred speech, dizziness and weakness. She says this has been going on for the past 3 days. She says she went to [facility] yesterday and was told she needed further work up for a stroke, but she was annoyed and signed out AMA. I spoke with her daughter who is concerned that she is having a stroke and needs an MRI. She says that she is holding her tongue strangely and has very slurred speech. She also continues to have dizziness. PFSH Past Medical History Arthritis: Yes (BOTH KNEES) Asthma: No Autoimmune Disease: No Blood Disorders: No Bipolar Disorder: Yes Anxiety: Yes Depression: No Heart Rhythm Problems: No Cancer: No Cardiac Catheterization: No Cardiovascular Problems: Yes High Cholesterol: No Chemotherapy: No Chest Pain: Yes Congestive Heart Failure: No COPD: Yes Cerebrovascular Accident: No Diabetes: No Diminished Hearing: No Endocrine: No GERD: No Glaucoma: No Genitourinary: No Headaches: No Hepatitis: No Hiatal Hernia: No Hypertension: Yes Immune Disorder: No Kidney Stones: No Musculoskeletal: Yes Neurologic: No Psychiatric: Yes (BIPOLAR) Reproductive: No Respiratory: Yes Immunizations Current: No Migraines: No Myocardial Infarction: No Radiation Therapy: No Renal Failure: No Seizures: No Sickle Cell Disease: No Sleep Apnea: No Thyroid Disease: No Ulcer: No ?: Not Menopausal: Yes Tubal Ligation: Yes Past Surgical History Abdominal Surgery: No AICD: No Appendectomy: No Arteriovenous Shunt: No Cardiac Surgery: Yes (PERICARDIAL WINDOW JAN 2007) Cholecystectomy: No Coronary Artery Bypass Graft: No Ear Surgery: No Endocrine Surgery: No Eye Surgery: No Genitourinary Surgery: No Gynecologic Surgery: Yes Insulin Pump: No Joint Replacement: No Oral Surgery: No Pacemaker: No Thoracic Surgery: No Other Surgery: Yes (CHEST SURGERY TO TAKE FLUID OFF) Family History Family Myocardial Infarction: Yes (mother) Social History Alcohol Use: No (PT DENIES ) Tobacco Use: No (PT DENIES ) Substance Use: No (PT DENIES ) Allergies-Medications (Allergen,Severity, Reaction): Coded Allergies: No Known Allergies (Verified Adverse Reaction, Unknown, 08/06/17) Reported Meds & Prescriptions Reported Meds & Active Scripts Active Lisinopril 40 Mg Tab 40 Mg PO DAILY Ventolin Hfa 18 GM Inh (Albuterol Sulfate) 90 Mcg/Act Aer 2 Puff INH Q4-6H PRN Use with MDI spacer. Reported Omeprazole 40 Mg Cap 40 Mg PO DAILY Proair Hfa 8.5 GM Inh (Albuterol Sulfate) 90 Mcg/Act Aer 1 Puff INH Q6HR PRN 108 mcg/actuation Review of Systems Except as stated in HPI: all other systems reviewed are Neg General / Constitutional: No: Fever, Chills Eyes: No: Blurred Vision HENT: Positive: Vertigo Cardiovascular: Positive: Chest Pain or Discomfort Respiratory: No: Shortness of Breath Gastrointestinal: No: Nausea, Vomiting Musculoskeletal: No: Edema Neurologic: Positive: Slurred Speech Physical Exam Narrative GENERAL: Awake and alert, no acute distress. SKIN: Focused skin assessment warm/dry. No wounds or signs of infection. HEAD: Atraumatic. Normocephalic. EYES: Pupils equal and round. No scleral icterus. Extraocular movements intact. ENT: Mucous membranes pink and moist. NECK: Trachea midline. No JVD. CARDIOVASCULAR: Regular rate and rhythm. No murmur appreciated. RESPIRATORY: No accessory muscle use. Clear to auscultation. Breath sounds equal bilaterally. GASTROINTESTINAL: Abdomen soft, non-tender, nondistended. MUSCULOSKELETAL: No obvious deformities. No clubbing. No cyanosis. No edema. NEUROLOGICAL: Awake and alert. No obvious cranial nerve deficits. Motor grossly within normal limits. Slurred speech. PSYCHIATRIC: Appropriate mood and affect; insight and judgment normal. Data Data Last Documented VS Vital Signs Date Time Temp Pulse Resp B/P (MAP) Pulse Ox O2 Delivery O2 Flow Rate FiO2 08/06/17 22:02 72 16 157/72 (100) 97 Room Air 08/06/17 16:40 99.0 Orders Orders Blood Glucose (08/06/17 17:00) Oximetry (08/06/17 17:00) Iv Access Insert/Monitor (08/06/17 17:00) Ecg Monitoring (08/06/17 17:00) Oxygen Administration (08/06/17 17:00) Electrocardiogram (08/06/17 17:00) Complete Blood Count With Diff (08/06/17 17:00) Basic Metabolic Panel (Bmp) (08/06/17 17:00) Ckmb (Isoenzyme) Profile (08/06/17 17:00) Troponin I (08/06/17 17:00) CKMB (08/06/17 18:13) CKMB% (08/06/17 18:13) Ct Brain W/O Iv Contrast(Rout) (08/06/17 ) Admit Order (Ed Use Only) (08/06/17 ) Labs Laboratory Tests Test 08/06/17 18:13 White Blood Count 8.8 TH/MM3 Red Blood Count 4.57 MIL/MM3 Hemoglobin 13.6 GM/DL Hematocrit 40.5 % Mean Corpuscular Volume 88.7 FL Mean Corpuscular Hemoglobin 29.7 PG Mean Corpuscular Hemoglobin Concent 33.5 % Red Cell Distribution Width 15.1 % Platelet Count 324 TH/MM3 Mean Platelet Volume 9.0 FL Neutrophils (%) (Auto) 67.7 % Lymphocytes (%) (Auto) 22.9 % Monocytes (%) (Auto) 4.8 % Eosinophils (%) (Auto) 3.6 % Basophils (%) (Auto) 1.0 % Neutrophils # (Auto) 5.9 TH/MM3 Lymphocytes # (Auto) 2.0 TH/MM3 Monocytes # (Auto) 0.4 TH/MM3 Eosinophils # (Auto) 0.3 TH/MM3 Basophils # (Auto) 0.1 TH/MM3 CBC Comment DIFF FINAL Differential Comment Blood Urea Nitrogen 10 MG/DL Creatinine 0.77 MG/DL Random Glucose 93 MG/DL Calcium Level 9.3 MG/DL Sodium Level 141 MEQ/L Potassium Level 3.8 MEQ/L Chloride Level 110 MEQ/L Carbon Dioxide Level 24.2 MEQ/L Anion Gap 7 MEQ/L Estimat Glomerular Filtration Rate 90 ML/MIN Total Creatine Kinase 165 U/L Creatine Kinase MB 1.6 NG/ML Troponin I LESS THAN 0.02 NG/ML MDM Medical Decision Making Medical Screen Exam Complete: Yes Emergency Medical Condition: Yes Medical Record Reviewed: Yes Differential Diagnosis TIA versus dehydration versus stroke versus vertigo Narrative Course Patient is a 67-year-old female who comes in complaining of dizziness and slurred speech. Exam shows some slurred speech, however there is no other neurologic abnormalities. IV established, labs sent. Labs show no acute abnormalities. CT head performed shows no acute abnormalities. Daughter is insistent that her mom is having a stroke and needs an MRI. She will be placed in observation for further management. Diagnosis Primary Impression: Transient ischemic attack Qualified Codes: G45.9 - Transient cerebral ischemic attack, unspecified Admitting Information Admitting Physician Requests: Observation Scripts Amlodipine (Norvasc) 2.5 Mg Tab 2.5 MG PO DAILY for Blood Pressure Management, #30 TAB 0 Refills Prov: Dolly Haider 08/07/17 Atorvastatin (Atorvastatin) 20 Mg Tab 20 MG PO HS for Cholesterol Management, #30 TAB 0 Refills Prov: Dolly Haider 08/07/[address] (Aspirin EC) 325 Mg Tabdr 325 MG PO DAILY for Blood Clot Prevention, #30 TAB Prov: Dolly Haider 08/07/17 Maria Luisa Bennett MD Aug 06, 2017 23:21
[2017-08-07] MEDS ORDERED: SODIUM CHLORIDE 0.9% FLUSH 10 ML FLUSH IV FLUSH PRN
[2017-08-07 01:56] VITALS: BP 173/81; PULSE 83; RESP 16; TEMP 98.4; O2SAT 98
--- NOTE | 2017-08-07 02:07 | HHI.HP ---
[facility] No Primary Care Physician Admission Diagnosis Stroke Diagnoses: Travel History International Travel<30 Days: No Contact w/Intl Traveler <30 Da: No Traveled to Known Affected Are: No History of Present Illness 67-year-old female with a past medical history significant for hypertension, osteoarthritis and coronary artery disease presents to the emergency department for evaluation of slurred speech, dizziness and weakness. She also has accompanying right lower extremity numbness. The patient states these symptoms have been going on for approximately 3 days. She was seen at [facility] yesterday and evaluated where a CT head was negative for acute process. The patient was supposed to be admitted however she left AMA secondary to being hungry. She is concerned as her symptoms have persisted that she may be having a stroke. She denies any fever/chills. Denies chest pain or shortness of breath. No nausea/vomiting/diarrhea. The patient is an extremely poor historian and difficult to understand that she is edentulous. Baseline unknown. Review of Systems Except as stated in HPI: all other systems reviewed are Neg Past Family Social History Past Medical History Hypertension Osteoarthritis Coronary artery disease Past Surgical History Unspecified cardiac surgery - patient did not know the details Reported Medications Reported Meds & Active Scripts Active Lisinopril 40 Mg Tab 40 Mg PO DAILY Ventolin Hfa 18 GM Inh (Albuterol Sulfate) 90 Mcg/Act Aer 2 Puff INH Q4-6H PRN Use with MDI spacer. Reported Omeprazole 40 Mg Cap 40 Mg PO DAILY Proair Hfa 8.5 GM Inh (Albuterol Sulfate) 90 Mcg/Act Aer 1 Puff INH Q6HR PRN 108 mcg/actuation Allergies: Coded Allergies: No Known Allergies (Verified Adverse Reaction, Unknown, 08/06/17) Family History Negative for CAD/DM Social History Denies alcohol, tobacco and illicit drugs Physical Exam Vital Signs Vital Signs Date Time Temp Pulse Resp B/P (MAP) Pulse Ox O2 Delivery O2 Flow Rate FiO2 08/06/17 22:02 72 16 157/72 (100) 97 Room Air 08/06/17 21:40 98 Room Air 08/06/17 21:40 81 16 98 08/06/17 16:40 99.0 82 16 155/101 (942) 82 Physical Exam GENERAL: Obese, female sitting up in bed SKIN: No rashes, ecchymoses or lesions. Cool and dry. HEAD: Atraumatic. Normocephalic. No temporal or scalp tenderness. EYES: Pupils equal round and reactive. Extraocular motions intact. No scleral icterus. No injection or drainage. ENT: Nose without bleeding, purulent drainage or septal hematoma. Throat without erythema, tonsillar hypertrophy or exudate. Uvula midline. Airway patent. Edentulous. NECK: Trachea midline. No JVD or lymphadenopathy. Supple, nontender, no meningeal signs. CARDIOVASCULAR: Regular rate and rhythm without murmurs, gallops, or rubs. RESPIRATORY: Clear to auscultation. Breath sounds equal bilaterally. No wheezes , rales, or rhonchi. GASTROINTESTINAL: Abdomen soft, non-tender, nondistended. No hepato-splenomegaly , or palpable masses. No guarding. MUSCULOSKELETAL: Extremities without clubbing, cyanosis, or edema. No joint tenderness, effusion, or edema noted. No calf tenderness. NEUROLOGICAL: Awake and alert. Cranial nerves II through XII intact. Motor and sensory grossly within normal limits. Five out of 5 muscle strength in all muscle groups. Mildly slurred speech of unclear etiology; may be secondary to patient's dental status Laboratory Laboratory Tests Test 08/06/17 18:13 White Blood Count 8.8 Red Blood Count 4.57 Hemoglobin 13.6 Hematocrit 40.5 Mean Corpuscular Volume 88.7 Mean Corpuscular Hemoglobin 29.7 Mean Corpuscular Hemoglobin Concent 33.5 Red Cell Distribution Width 15.1 Platelet Count 324 Mean Platelet Volume 9.0 Neutrophils (%) (Auto) 67.7 Lymphocytes (%) (Auto) 22.9 Monocytes (%) (Auto) 4.8 Eosinophils (%) (Auto) 3.6 Basophils (%) (Auto) 1.0 Neutrophils # (Auto) 5.9 Lymphocytes # (Auto) 2.0 Monocytes # (Auto) 0.4 Eosinophils # (Auto) 0.3 Basophils # (Auto) 0.1 CBC Comment DIFF FINAL Differential Comment Blood Urea Nitrogen 10 Creatinine 0.77 Random Glucose 93 Calcium Level 9.3 Sodium Level 141 Potassium Level 3.8 Chloride Level 110 Carbon Dioxide Level 24.2 Anion Gap 7 Estimat Glomerular Filtration Rate 90 Total Creatine Kinase 165 Creatine Kinase MB 1.6 Troponin I LESS THAN 0.02 Result Diagram: 08/06/17181208/06/171812 Caprini VTE Risk Assessment Caprini VTE Risk Assessment: Mod/High Risk (score >= 2) Caprini Risk Assessment Model Point Value = 1 Point Value = 2 Point Value = 3 Point Value = 5 Age 41-60 Minor surgery BMI > 25 kg/m2 Swollen legs Varicose veins or History of unexplained or recurrent spontaneous Oral contraceptives or hormone replacement Sepsis (< 1 month) Serious lung disease, including pneumonia (< 1 month) Abnormal pulmonary function Acute myocardial infarction Congestive heart failure (< 1 month) History of inflammatory bowel disease Medical patient at bed rest Age 61-74 Arthroscopic surgery Major open surgery (> 45 min) Laparoscopic surgery (> 45 min) Malignancy Confined to bed (> 72 hours) Immobilizing plaster cast Central venous access Age >= 75 History of VTE Family history of VTE Factor V Leiden Prothrombin [id number] Lupus anticoagulant Anticardiolipin antibodies Elevated serum homocysteine Heparin-induced thrombocytopenia Other congenital or acquired thrombophilia Stroke (< 1 month) Elective arthroplasty Hip, pelvis, or leg fracture Acute spinal cord injury (< 1 month) Prophylaxis Regimen Total Risk Factor Score Risk Level Prophylaxis Regimen 0-1 Low Early ambulation 2 Moderate Order ONE of the following: *Sequential Compression Device (SCD) *Heparin 5000 units SQ BID 3-4 Higher Order ONE of the following medications: *Heparin 5000 units SQ TID *Enoxaparin/Lovenox 40 mg SQ daily (WT < 150 kg, CrCl > 30 mL/min) *Enoxaparin/Lovenox 30 mg SQ daily (WT < 150 kg, CrCl > 10-29 mL/min) *Enoxaparin/Lovenox 30 mg SQ BID (WT < 150 kg, CrCl > 30 mL/min) AND/OR *Sequential Compression Device (SCD) 5 or more Highest Order ONE of the following medications: *Heparin 5000 units SQ TID (Preferred with Epidurals) *Enoxaparin/Lovenox 40 mg SQ daily (WT < 150 kg, CrCl > 30 mL/min) *Enoxaparin/Lovenox 30 mg SQ daily (WT < 150 kg, CrCl > 10-29 mL/min) *Enoxaparin/Lovenox 30 mg SQ BID (WT < 150 kg, CrCl > 30 mL/min) AND *Sequential Compression Device (SCD) Assessment and Plan Assessment and Plan Assessment/plan: 1. Slurred speech, weakness, right lower extremity numbness Cannot rule out CVA or TIA Head CT negative for intercranial process both yesterday at [facility] ( records personally reviewed) and today CVA workup pending; brain MRI/MRA, Carotid US, ECHO PT/OT/speech Neurology consulted, appreciate recommendations 2. Hypertension/GERD Continue home medications FEN NPO Electrolytes: monitor and replete prn Heparin NS at 84 cc/hr Joann Han MD Aug 07, 2017 02:06
[2017-08-07] MEDS ORDERED: SODIUM CHLOR 0.9% 1000 ML INJ 1,000 ML IV SCH (02:15)
[2017-08-07] MEDS ORDERED: HEPARIN SODIUM - SQ 10,000 UNITS/ML VIAL SQ SCH (06:00)
[2017-08-07 08:00] VITALS: BP 122/71; PULSE 87; RESP 20; TEMP 98.4; O2SAT 96
[2017-08-07] MEDS ORDERED: LISINOPRIL 20 MG TAB PO SCH (09:00)
[2017-08-07] MEDS ORDERED: SODIUM CHLORIDE 0.9% FLUSH 10 ML FLUSH IV FLUSH SCH (09:00)
[2017-08-07] MEDS ORDERED: PANTOPRAZOLE SOD 40 MG DELAYED RELEASE TAB PO SCH (09:00)
--- NOTE | 2017-08-07 09:10 | RADRPT ---
EXAM DATE/TIME: 08/07/2017 08:06 [facility] COMPARISON: CT THORAX W/O CONTRAST, December 30, 2016, 19:10. INDICATIONS : Cerebrovascular accident. MEDICAL HISTORY : Arthritis. Pericardial window. Chest pain. HTN. COPD. Dyspnea. Bipolar disorder. Anxiety. SURGICAL HISTORY : Tubal ligation. Chest surgery to remove fluid. ENCOUNTER: Initial ACUITY: 2 days PAIN SCORE: 0/10 LOCATION: Bilateral neck PEAK SYSTOLIC VELOCITIES (cm/sec): ICA/CCA RATIO: Right: 0.9 Left: 0.7 ICA: Right: 112 Left: 130 CCA: Right: 123 Left: 176 ECA: Right: 138 Left: 122 VERTEBRAL: Right: 83 antegrade Left: 59 antegrade Elevated flow velocities and ICA/CCA ratios have been found to correlate with increased degrees of vessel stenosis, calculated as percentage of diameter relative to a normal segment of distal ICA/CCA FINDINGS: RIGHT CAROTID: No significant stenosis is visualized. The waveforms are within normal limits. LEFT CAROTID: No significant stenosis is visualized. The waveforms are within normal limits. VERTEBRAL ARTERIES: Antegrade flow is seen in both vertebral arteries. MISCELLANEOUS: Incidental note of a small isoechoic nodule identified within the left lobe of the thyroid. CONCLUSION: No significant stenosis identified on either side. Sadaf Medrano MD on August 07, 2017 at 9:04 Board Certified Radiologist. This report was verified electronically.
--- NOTE | 2017-08-07 09:19 | RADRPT ---
EXAM DATE/TIME: 08/07/2017 08:39 [facility] COMPARISON: No previous studies available for comparison. INDICATIONS : CVA. Slurred speech. Dizziness. Weakness. MEDICAL HISTORY : Osteoarthritis. Cardiovascular disease Hypertension. SURGICAL HISTORY : Pericardial window. ENCOUNTER: Initial ACUITY: 1 day PAIN SCORE: 0/10 LOCATION: cranial TECHNIQUE: Multiplanar, multisequence MRI of the brain was performed without contrast. FINDINGS: CEREBRUM: The ventricles are normal for age. No evidence of midline shift, mass lesion, hemorrhage or acute in farction. No extraaxial fluid collections are seen. The pituitary gland and suprasellar cistern are normal in configuration. WHITE MATTER: Scattered areas of periventricular foci of increased T2 signal. These are nonspecific but may reflect sequelae of chronic small vessel ischemic change. POSTERIOR FOSSA: The cerebellum and brainstem are intact. The 4th ventricle is midline. The cerebellopontine angle is unremarkable. The cerebellar tonsils are normal in position. DIFFUSION IMAGING: No focal areas of restricted diffusion are seen. No evidence of acute infarction. EXTRACRANIAL: The visualized portions of the orbits and paranasal sinuses are unremarkable. CONCLUSION: No acute abnormality seen. The foci of increased T2 signal identified within the white matter are non specific in appearance and distribution. Given the patient's age this may reflects probably of small vessel chronic ischemic change.. Sadaf Medrano MD on August 07, 2017 at 9:16 Board Certified Radiologist. This report was verified electronically.
--- NOTE | 2017-08-07 09:20 | RADRPT ---
EXAM DATE/TIME: 08/07/2017 08:39 [facility] COMPARISON: No previous studies available for comparison. INDICATIONS : CVA. Slurred speech. Dizziness. Weakness. MEDICAL HISTORY : Osteoarthritis. Cardiovascular disease Hypertension. SURGICAL HISTORY : Pericardial window. ENCOUNTER: Initial ACUITY: 1 day PAIN SCORE: 0/10 LOCATION: cranial Please note a normal MRA of the brain does not entirely exclude the possibility of a small aneurysm, nor the possibility of distal intracranial vessel disease. TECHNIQUE: 3D time of flight MRA was performed. Source images, multiplanar STS MIP, and 3D volume MIP reconstru ctions were reviewed. FINDINGS: There is excellent visualization of the major intracranial arteries out to the second-order branch ve ssels. There is no evidence for aneurysm, vessel truncation or stenosis, and no evidence for vascula r malformation. CONCLUSION: Normal examination. Sadaf Medrano MD on August 07, 2017 at 9:17 Board Certified Radiologist. This report was verified electronically.
--- NOTE | 2017-08-07 10:35 | HHI.PR ---
Subjective Remarks Follow-up visit of slurred speech, dizziness and weakness. She states she is doing a lot better. Denies any slurred speech. Noted mild tremors but patient states it has been there for a while but cannot recall for how long. Appears to have some delay with response to questions. But patient knows the year, the place, the city, the month, personal information. Denies pain and discomfort. Denies SOB/ dyspnea. Denies chest pain, palpitations, headaches, dizziness. Denies fevers, chills, n/v/d. Denies dysuria. Objective Vitals Vital Signs Date Time Temp Pulse Resp B/P (MAP) Pulse Ox O2 Delivery O2 Flow Rate FiO2 08/07/17 08:00 98.4 87 20 122/71 (88) 96 08/07/17 01:56 98.4 83 16 173/81 (111) 98 08/06/17 22:02 72 16 157/72 (100) 97 Room Air 08/06/17 21:40 98 Room Air 08/06/17 21:40 81 16 98 08/06/17 16:40 99.0 82 16 155/101 (119) 82 I/O 08/06/17 08/06/17 08/06/17 08/07/17 08/07/17 08/07/17 07:00 15:00 23:00 07:00 15:00 23:00 Intake Total 360 ml Balance 360 ml Intake Oral 360 ml Result Diagram: 08/06/17 1813 08/06/17 1813 Imaging Last Impressions Head Magnetic Resonance Angiography 08/07/17 0000 Signed Impressions: Service Date/Time: Monday, August 07, 2017 08:39 - CONCLUSION: Normal examination. Sadaf Medrano MD Carotid Artery Ultrasound 08/07/17 0000 Signed Impressions: Service Date/Time: Monday, August 07, 2017 08:06 - CONCLUSION: No significant stenosis identified on either side. Sadaf Medrano MD Brain MRI 08/07/17 0000 Signed Impressions: Service Date/Time: Monday, August 07, 2017 08:39 - CONCLUSION: No acute abnormality seen. The foci of increased T2 signal identified within the white matter are nonspecific in appearance and distribution. Given the patient's age this may reflects probably of small vessel chronic ischemic change.. Sadaf Medrano MD Head CT 3/16/18 0000 Signed Impressions: Service Date/Time: Sunday, August 06, 2017 21:51 - CONCLUSION: No bleed or evidence of an acute ischemic event. Mild chronic white matter changes. Ethmoid sinus disease noted. Rodney Dean MD Objective Remarks GENERAL: This is a well-nourished, well-developed patient, in no apparent distress. SKIN: Warm and dry. HEENT: Normocephalic. Pupils equal round and reactive. Nose without bleeding. Airway patent. NECK: Trachea midline. CARDIOVASCULAR: Regular rate and rhythm without murmurs, gallops, or rubs. RESPIRATORY: Clear to auscultation. Breath sounds equal bilaterally. No wheezes , rales, or rhonchi. GASTROINTESTINAL: Abdomen soft, non-tender, nondistended. Bowel Sounds normoactive x4. MUSCULOSKELETAL: Extremities without clubbing, cyanosis, or edema. NEUROLOGICAL: Awake and alert. Oriented to year, place, person. Mouth mild tremors. Moves all extremities. Equal strength BUE 5/5, DELGADO 4/5. Slightly slurred speech. A/P Problem List: (1) Generalized weakness ICD Code: R53.1 - Weakness (2) COPD (chronic obstructive pulmonary disease) ICD Code: J44.9 - COPD (chronic obstructive pulmonary disease) Status: Acute Assessment and Plan 67-year-old female with a past medical history significant for hypertension, osteoarthritis and coronary artery disease presents to the emergency department for evaluation of slurred speech, dizziness and weakness. Slurred speech, weakness, right lower extremity numbness Cannot rule out CVA or TIA Head CT negative for intercranial process both yesterday at [facility] (records personally reviewed) and today Brain MRI no acute abnormality seen. Foci of increased T2 signal identified within the white matter are nonspecific in appearance and distribution. Given the patient's age this may reflect probably of small vessel chronic ischemic change. Head MRA showed normal examination Carotid US showed no significant stenosis identified on either side, ECHO pending Check lipid profile, hemoglobin A1c PT/OT/speech Neurology consulted, appreciate recommendations. May need to start antiplatelet, statin Hypertension/GERD Continue home medications lisinopril 40 mg daily, pantoprazole 40 mg daily DVT prop heparin Discharge Planning Plan to DC home when cleared by neurology. Dolly Haider Aug 07, 2017 10:35
[2017-08-07 10:49] LABS: AUTOMATED NEUTROPHIL # 4.5 TH/MM3 (1.8-7.7); BASOPHIL # 0.1 TH/MM3 (0-0.2); BASOPHIL % 1.2 % (0.0-2.0); EOSINOPHIL # 0.5 TH/MM3 (0-0.4); EOSINOPHIL % 5.7 % (0.0-4.0); HEMATOCRIT 37.2 % (35.0-46.0); HEMOGLOBIN 12.6 GM/DL (11.6-15.3); LYMPHOCYTE # 2.7 TH/MM3 (1.0-4.8); MEAN CELL VOLUME 89.1 FL (80.0-100.0); MEAN CORPUSCULAR HEMOGLOBIN 30.2 PG (27.0-34.0); MEAN CORPUSCULAR HGB CONC 33.9 % (32.0-36.0); MEAN PLATELET VOLUME 8.9 FL (7.0-11.0); MONO % 5.8 % (0.0-8.0); MONOCYTE # 0.5 TH/MM3 (0-0.9); NEUT % 54.3 % (16.0-70.0); PLATELET COUNT 295 TH/MM3 (150-450); RED BLOOD COUNT 4.18 MIL/MM3 (4.00-5.30); RED CELL DISTRIBUTION WIDTH 14.8 % (11.6-17.2); WHITE BLOOD COUNT 8.3 TH/MM3 (4.0-11.0)
[2017-08-07 11:22] LABS: BICARBONATE 25.3 MEQ/L (21.0-32.0); BLOOD UREA NITROGEN 9 MG/DL (7-18); CALCIUM 8.4 MG/DL (8.5-10.1); CHLORIDE 109 MEQ/L (98-107); CHOLESTEROL 170 MG/DL (120-200); CHOLESTEROL/ HDL RATIO 2.88 RATIO; CREATININE 0.78 MG/DL (0.50-1.00); GLOMERULAR FILTRATION RATE 89 ML/MIN (>89); GLUCOSE,RANDOM 123 MG/DL (74-106); HDL CHOLESTEROL 58.9 MG/DL (40.0-60.0); LDL CHOLESTEROL 85 MG/DL (0-99); SODIUM (NA) 143 MEQ/L (136-145); TRIGLYCERIDES 132 MG/DL (42-150)
[2017-08-07 13:15] LABS: ALBUMIN 3.1 GM/DL (3.4-5.0); DIRECT BILIRUBIN ADULT 0.1 MG/DL (0.0-0.2)
[2017-08-07] MEDS ORDERED: PILL SPLITTER OTHER PRN (13:15)
[2017-08-07] MEDS ORDERED: ASPIRIN EC 325 MG TABEC PO SCH (13:15)
[2017-08-07 13:17] LABS: INDIRECT BILIRUBIN 0.5 MG/DL (0.0-0.8); TOTAL BILIRUBIN ADULT 0.6 MG/DL (0.2-1.0); TOTAL PROTEIN 7.2 GM/DL (6.4-8.2)
[2017-08-07 13:56] LABS: HEMOGLOBIN A1C 5.5 % (4.3-6.0)
--- NOTE | 2017-08-07 13:58 | PD.CONS ---
History of Present Illness Service Neurology Consult Requested By medical Reason for Consult stroke Primary Care Physician No Primary Care Physician History of Present Illness 67-year-old female admitted for neuro symptoms. pt states she felt dizzy and lightheaded, weak. feels better now. no focal weakness, no sensory changes, no vision loss. denies vertiog, estrada/cp/neck pain. wants to go home know. does not take any antiplatelets. states she is not seeing any pcp at present. Review of Systems Except as stated in HPI: all other systems reviewed are Neg/as per above Past Family Social History Past Medical History Hypertension Osteoarthritis Coronary artery disease Allergies: Coded Allergies: No Known Allergies (Verified Adverse Reaction, Unknown, 08/06/17) Family History Negative for CAD/DM Social History Denies alcohol, tobacco and illicit drugs Review of Systems All other ROS: ROS reviewed as documented in chart Past Family Social History Allergies: Coded Allergies: No Known Allergies (Verified Adverse Reaction, Unknown, 08/06/17) Active Ordered Medications Current Medications Medications (Trade) Dose Ordered Sig/Alejandro Route Start Time Stop Time Status Last Admin (NS Flush) 2 ml BID IV FLUSH 08/07/17 09:00 (NS Flush) 2 ml UNSCH PRN IV FLUSH 08/07/17 00:00 (Prinivil) 40 mg DAILY PO 08/07/17 09:00 08/07/17 08:06 (Protonix) 40 mg DAILY PO 08/07/17 09:00 08/07/17 08:06 Sodium Chloride 1,000 ml @ 84 mls/hr [id number] IV 08/07/17 02:15 (Heparin Inj) 5,000 units Q8HR SQ 08/07/17 06:00 08/07/17 08:05 (Ecotrin Ec) 325 mg DAILY PO 08/07/17 13:15 (Lipitor) 20 mg HS PO 08/07/17 21:00 (Pill Splitter) 1 ea UNSCH PRN OTHER 08/07/17 13:15 Exam I&O / VS 08/07/17 08/07/17 08/08/17 15:00 23:00 07:00 Intake Total 360 ml Balance 360 ml Intake Oral 360 ml Vital Signs Date Time Temp Pulse Resp B/P (MAP) Pulse Ox O2 Delivery O2 Flow Rate FiO2 08/07/17 08:00 98.4 87 20 122/71 (88) 96 08/07/17 01:56 98.4 83 16 173/81 (111) 98 08/06/17 22:02 72 16 157/72 (100) 97 Room Air 08/06/17 21:40 98 Room Air 08/06/17 21:40 81 16 98 08/06/17 16:40 99.0 82 16 155/101 (119) 82 General: Alert and Oriented, No acute distress Eye: EOMI Respiratory: Non-labored respirations Musculoskeletal: ROM Neurologic: Alert, Oriented, Normal sensory, Normal motor, No focal defects, CN II-XII intact, Normal DTR's Psychiatric: Cooperative, Appropriate mood & affect Review/Management Diagnosis/Plan: (1) Transient ischemic attack ICD Codes: G45.9 - Transient cerebral ischemic attack, unspecified Status: Acute Plan: questionable suspect may be 2/2 htn urgency recs complaint f/u with pcp and med intake aspirin exercise/wt loss/dm/htn control ok to d/c from neuro with bp control and f/u outpatient (2) Hypertension ICD Codes: I10 - Hypertension Status: Chronic (3) Anxiety ICD Codes: F41.9 - Anxiety Status: Chronic Mk Sands MD Aug 07, 2017 13:58
[2017-08-07] MEDS ORDERED: ATOR20TA15 PO (14:55)
[2017-08-07] MEDS ORDERED: ASPI325T33 PO (14:55)
--- NOTE | 2017-08-07 14:57 | HHI.DCPOC ---
Discharge Care Plan Diagnosis: (1) Hypertension (2) COPD exacerbation (3) Transient ischemic attack Additional Problems Elevated BP Goals to Promote Your Health * To prevent worsening of your condition and complications * To maintain your health at the optimal level Directions to Meet Your Goals Take your medications as prescribed Follow your dietary instruction Follow activity as directed Keep your appointments as scheduled Take your immunizations and boosters as scheduled If your symptoms worsen call your PCP, if no PCP go to Urgent Care Center or Emergency Room Smoking is Dangerous to Your Health. Avoid second hand smoke Call the 24-hour hour crisis hotline for domestic abuse at [facility] Aug 07, 2017 14:57
[2017-08-07] MEDS ORDERED: NORV2.5T PO (15:06)
--- NOTE | 2017-08-07 18:11 | EKG ---
Date Performed: 08/06/2017 Time Performed: 17:59:25 PTAGE: 67 years EKG: Sinus rhythm MINIMAL VOLTAGE CRITERIA FOR LVH, CONSIDER NORMAL VARIANT NONSPECIFIC T-WAVE ABNORMALITY BORDERLINE ECG Since PREVIOUS TRACING , no significant change noted PREVIOUS TRACIN07/27/2017 10.50 DOCTOR: Maury Hoyt Interpretating Date/Time 08/07/2017 18:09:58
[2017-08-07] MEDS ORDERED: ATORVASTATIN 40 MG TAB PO SCH (21:00)
== END 2017-08-07 16:38 | disposition home or self-care (01) ==
LOC: NEPC 15:55 → NEDA 23:26 → NEDH 08-07 09:50 → NEPFCDU 08-07 12:51
PROVIDERS: ADMIT Hospitalist; ATTEND Hospitalist
DX: G45.9 Transient cerebral ischemic attack, unspecified (principal); I10 Essential (primary) hypertension; I25.10 Atherosclerotic heart disease of native coronary artery without angina pectoris; J44.9 Chronic obstructive pulmonary disease, unspecified; K21.9 Gastro-esophageal reflux disease without esophagitis; F41.9 Anxiety disorder, unspecified; F31.9 Bipolar disorder, unspecified; M19.90 Unspecified osteoarthritis, unspecified site; Z79.899 Other long term (current) drug therapy
CPT/HCPCS: 70450; 70544; 70551; 80048; 80061; 80076; 82550; 82552; 82948; 83036; 84484; 85025; 92610; 93005; 93880; 97162; 97166; 99285; G0378; G8987; G8988; G8989; G8996; G8997; G8998; J1644